=== PATIENT | male | born 2000 | race Caucasian/White ===

== ENCOUNTER 2020-03-16 21:06 | Emergency (ER) | payer OTHER ==
[~2020-03-16] VITALS: Ht 180.3 cm; Wt 69.2 kg
[2020-03-16] MEDS ORDERED: KETOROLAC 30 MG/ML 1ML VIAL IV ONE (23:45)
[2020-03-16] MEDS ORDERED: GI COCKTAIL 50ML BTL(HYOSCYAMINE/MAALOX/LIDOCAINE VISCOUS)(1:3:1) PO ONE (23:45)
[2020-03-16] MEDS ORDERED: NS 1,000 ML IV ONE (23:45)
[2020-03-16] MEDS ORDERED: METOCLOPRAMIDE INJ 10MG/2ML VIAL (J2765 PER 1) IV ONE (23:45)
[2020-03-17 00:41] LABS: BASO % 1.2 % (0.0-1.0); EOS % 0.3 % (0.0-3.0); HEMATOCRIT 47.9 % (42.0-52.0); HEMOGLOBIN 15.8 g/dl (13.5-17.5); LYMPH # 0.7 10^3/uL (1.5-5.0); LYMPH % 22.9 % (24.0-44.0); MEAN CORPUSCULAR HEMOGLOBIN 29.8 pg (27.0-33.0); MEAN CORPUSCULAR VOLUME 90.4 fl (80.0-96.0); MONO # 0.3 10^3/uL (0.0-0.8); MONO % 8.4 % (0.0-5.0); NEUTROPHILS # 2.1 10^3/uL (1.5-8.5); NEUTROPHILS % 66.3 % (36.0-66.0); PLATELET COUNT, AUTOMATED 145 10^3/uL (150-450); WHITE BLOOD COUNT 3.2 10^3/uL (4.0-10.0)
[2020-03-17 01:01] LABS: ALBUMIN 3.8 GM/DL (3.2-5.2); ALT/SGPT 33 U/L (12-78); BILIRUBIN,DIRECT 0.2 MG/DL (0.0-0.2); BILIRUBIN,TOTAL 1.1 MG/DL (0.2-1.0); BLOOD UREA NITROGEN 16 MG/DL (7-18); CALCIUM LEVEL 8.7 MG/DL (8.5-10.1); CARBON DIOXIDE LEVEL 31 MEQ/L (21-32); CHLORIDE LEVEL 102 MEQ/L (98-107); CREATININE FOR GFR 1.12 MG/DL (0.70-1.30); GLUCOSE, FASTING 128 MG/DL (70-100); LIPASE 50 U/L (73-393); POTASSIUM SERUM 4.6 MEQ/L (3.5-5.1); SODIUM LEVEL 134 MEQ/L (136-145); TOTAL PROTEIN 8.3 GM/DL (6.4-8.2)
[2020-03-17 01:28] VITALS: BP 122/73
--- NOTE | 2020-03-17 01:36 | REPVR ---
PROCEDURE INFORMATION: Exam: XR Chest, 2 Views Exam date and time: 03/17/20 (1:10am) Age: 19 years old Clinical indication: Fever TECHNIQUE: Imaging protocol: XR of the chest Views: 2 views COMPARISON: No relevant prior studies available FINDINGS: Lungs: Unremarkable. No consolidation. Pleural space: Unremarkable. No pleural effusions. No pneumothorax. Heart/Mediastinum: Unremarkable. No cardiomegaly. Bones/joints: Unremarkable. IMPRESSION: No acute findings. Clearlung stewart. Electronically signed by: Veronica Hernandez On 03/17/2020 01:36:02 AM
[2020-03-17 02:38] LABS: MONO REFLEX EBV COMP NEGATIVE (NEGATIVE)
[2020-03-18 16:08] LABS: EBV AB TO NUCLEAR ANTIGEN >600.0 U/mL (0.0-17.9); EBV VIRAL CAPSID AG IgM <36.0 U/mL (0.0-35.9); Lyme Disease IgG/IgM Antibodie <0.91 ISR (0.00-0.90); Lyme Disease IgM Ab Quantitati <0.80 index (0.00-0.79)
== END 2020-03-17 02:25 | disposition home or self-care (01) ==
LOC: M ED 21:06
DX: R50.9 Fever, unspecified (principal); R51 Headache; R07.0 Pain in throat; M79.10 Myalgia, unspecified site; Z88.0 Allergy status to penicillin
CPT/HCPCS: 71046; 80048; 80076; 83690; 85025; 86308; 86617; 86664; 86665; 87040; 87880; 96361; 96374; 96375; 99284; J1885; J2765; U0002